=== PATIENT | female | born 1960 | race Caucasian/White ===

== ENCOUNTER → 2020-02-15 13:41 | Outpatient (BNVA) | payer MEDICARE, SELFPAY | PROVIDERS: PCP Internal Medicine; Referring Provider Internal Medicine; Visit Provider Physician Assistant | DX: R19.5 Other fecal abnormalities (principal); I25.2 Old myocardial infarction | CPT/HCPCS: 99202 ==

== ENCOUNTER 2020-06-07 16:18 | Outpatient (REF) | payer MEDICARE, SELFPAY ==
--- NOTE | ~2020-06-07 | MM_ITS ---
EXAMINATION: MM SCREENING DIGITAL BREAST TOMOSYNTHESIS, BILATERAL CLINICAL INFORMATION: Screening. Asymptomatic. The lifetime risk of breast cancer based on the Tyrer-Cuzick Model is 5%. COMPARISON: Mammography: 06/12/2016 TECHNIQUE: Digital breast tomosynthesis is performed in both the craniocaudal and mediolateral oblique views along with computer-aided detection (CAD). Synthesized 2D images are generated from the tomosynthesis. FINDINGS: The breasts are almost entirely fatty (ACR BI-RADS breast composition Category a). There are no significant masses, abnormal calcifications, or other abnormalities. Again, there is a stable nodule anterior 6:00 left breast with associated bulky calcification consistent with degenerating fibroadenoma. MM/MM tomosynthesis screening BI IMPRESSION: No mammographic evidence of malignancy. ASSESSMENT: BI-RADS 2: Benign RECOMMENDATION: Routine annual mammography screening. This patient's information was entered into a reminder system with a target due date for their next mammogram.
== END 2020-06-07 16:19 | disposition home or self-care (01) ==
LOC: HO.MAMMO 16:18
PROVIDERS: PCP Internal Medicine; Visit Provider Internal Medicine
DX: Z12.31 Encounter for screening mammogram for malignant neoplasm of breast (principal)
CPT/HCPCS: 77063; 77067

== ENCOUNTER 2020-07-24 07:20 | Day surgery (SDC) | payer MEDICARE, SELFPAY ==
[2020-07-17 15:35] VITALS: BMI 38.8
--- NOTE | 2020-07-18 12:50 | HO.ANESPROP2 ---
Documented by User: Millicent Tijerina 07/18/20 12:53 HPI - Anesthesia Eval Consult details Narrative: 60yo F for Colonoscopy Routine Cardiology OV 05/2020 - stable without CP or SOB with gym 5 days per week PMFSH Active Problems Active Problems: All Active Problems (Updated 07/17/20 @ 15:26 by Fiordaliza Chang) Positive colorectal cancer screening using Cologuard test (Acute) Past Medical History Medical History CAD (coronary artery disease) Elevated cholesterol GERD (gastroesophageal reflux disease) GI bleed Heart attack HTN (hypertension) Family History Family History Father Lymphoma Surgical History Surgical History History of esophagogastroduodenoscopy (EGD) Hx of appendectomy Hx of exploratory laparotomy Hx of heart artery stent Social History Social History Household Members: Spouse Smoking Status: Former smoker Tobacco Type: Cigarette Smoking Quit Date: 2016 Use of substances other than those prescribed or required for medical reasons: No Advance Directives: No Advance Directives Information Provided: Yes Meds Allergies Allergy/AdvReac Type Severity Reaction Status Date / Time doxycycline Allergy Unknown Unknown Verified 07/17/20 15:25 meperidine [Demerol] Allergy Unknown Unknown Verified 07/17/20 15:25 Home Medications Medication Instructions Recorded Confirmed Last Taken Type atorvastatin 80 mg tablet 80 mg PO DAILY 02/15/20 07/17/20 Unknown History isosorbide dinitrate 30 mg tablet 30 mg PO ONCE tab 02/15/20 07/24/20 07/24/20 07:00 History lisinopril 5 mg tablet 5 mg PO DAILY 02/15/20 07/17/20 Unknown History metoprolol succinate 50 mg 50 mg PO BEDTIME 02/15/20 07/17/20 Unknown History tablet,extended release 24 hr pantoprazole 40 mg tablet,delayed 40 mg PO DAILY 02/15/20 07/17/20 Unknown History release aspirin [Aspirin Low Dose] 81 mg PO DAILY 07/17/20 07/24/20 07/23/20 History nitroglycerin [Nitrostat] 0.4 mg SUBLINGUAL Q5M PRN 07/17/20 07/17/20 Unknown History Exam Exam Date and Time: July 18, 2020 1250 Height,Weight and Vital Signs: Height 5 ft 3 in Weight 99.393 kg Assessment and Plan Assessment Anesthesia Assessment: Chart Reviewed Documented by User: Mirta Contreras 07/24/20 08:28 [facility] Past Medical History Medical History CAD (coronary artery disease) Elevated cholesterol GERD (gastroesophageal reflux disease) GI bleed Heart attack HTN (hypertension) Family History Family History Father Lymphoma Surgical History Surgical History History of esophagogastroduodenoscopy (EGD) Hx of appendectomy Hx of exploratory laparotomy Hx of heart artery stent Social History Social History Household Members: Spouse Smoking Status: Former smoker Tobacco Type: Cigarette Smoking Quit Date: 2016 Use of substances other than those prescribed or required for medical reasons: No Advance Directives: No Advance Directives Information Provided: Yes Meds Allergies Allergy/AdvReac Type Severity Reaction Status Date / Time doxycycline Allergy Unknown Unknown Verified 07/17/20 15:25 meperidine [Demerol] Allergy Unknown Unknown Verified 07/17/20 15:25 Home Medications Medication Instructions Recorded Confirmed Last Taken Type atorvastatin 80 mg tablet 80 mg PO DAILY 02/15/20 07/17/20 Unknown History isosorbide dinitrate 30 mg tablet 30 mg PO ONCE tab 02/15/20 07/24/20 07/24/20 07:00 History lisinopril 5 mg tablet 5 mg PO DAILY 02/15/20 07/17/20 Unknown History metoprolol succinate 50 mg 50 mg PO BEDTIME 02/15/20 07/17/20 Unknown History tablet,extended release 24 hr pantoprazole 40 mg tablet,delayed 40 mg PO DAILY 02/15/20 07/17/20 Unknown History release aspirin [Aspirin Low Dose] 81 mg PO DAILY 07/17/20 07/24/20 07/23/20 History nitroglycerin [Nitrostat] 0.4 mg SUBLINGUAL Q5M PRN 07/17/20 07/17/20 Unknown History Exam Airway Mallampati Class: II TM Dist: >3cm Neck ROM: Full
[2020-07-24 07:53] VITALS: BP 143/85; PULSE 80; RESP 16; TEMP 36.4; O2SAT 98; BMI 35.9
[2020-07-24] MEDS: Lactated Ringers 1,000 ML 100 ML IVCONT (08:02)
--- NOTE | 2020-07-24 08:16 | W.PM.OPN ---
Operative Note Operative Note Date of Service: 07/24/20 Narrative: Pre-op diagnosis: Colon cancer screening, positive Cologuard test Post-op diagnosis: other (Colon polyps, diverticulosis, hemorrhoids) Procedure: COLONOSCOPY TILL CECUM WITH SNARE POLYPECTOMY AND SUBMUCOSAL INJECTION Consent: Indications for the procedure and potential complications of bleeding, perforation, reaction to medications and missed diagnosis were discussed with the patient and informed consent was obtained. Instrument: Olympus PCF H 190 L variable stiffness pediatric colonoscope & Olympus CF H 190 variable stiffness adult colonoscope Monitoring: Vital signs and clinical assessment, intermittent blood pressure monitoring, continuous EKG monitoring, Pulse oximetry and Carbon Dioxide monitoring were done throughout the procedure. Colon withdrawl time was 45 minutes. Procedure: The patient was placed in the left lateral decubitis position and pre-procedure medications were administered. After a digital rectal examination of the ano-rectum, the video colonoscope was inserted into the rectum and advanced through the colon to the cecum. The colonoscope was slowly withdrawn in a retrograde panoramic fashion and the colon mucosa was carefully examined including a retroflexed view of the rectum. Findings and interventions are described below. Procedure Difficulty: Colon was long and tortuous and there was recurrent loop formation. Patient was placed in the supine position and LLQ pressure was applied to intubate the transverse colon Findings: Terminal Ileum: Not evaluated Cecum: Normal Ascending Colon: A 3 x 1 cms elongated polyp in the proximal AC at 100 cms - polyp was raised with 5 cc of Orise solution (submucosal injection) and removed piecemeal with a hot snare. Polypectomy site was marked by Patito ink. Transverse Colon: A 4 x 3 cms flat polyp at 80 cms - polyp was raised with 7 cc of Orise solution (submucosal injection) and removed piecemeal with a hot snare. Polypectomy site was marked by Patito ink. Descending Colon: Moderate diverticulosis Sigmoid Colon: Moderate diverticulosis Rectum: Normal Ano-rectum: Normal. Colon preparation: Fair after copious irrigation and poor in some areas of the colon Impression and Post Procedure Diagnosis: Colonoscopy Findings: Two large polyps removed Moderate diverticulosis seen in the left colon Fair prep. Plan: Await pathology results Letter will be sent to the patient with biopsy results and recommendations for follow-up colonoscopy. Repeat Colonoscopy interval based on path results - in 6 months if polyps are adenomatous to check polypectomy sites in ascending and transverse colon and due to fair prep. Above findings were reviewed with the patient and colon polyps and diverticulosis handouts were given in the discharge area Surgeon: Henrik Kasper MD Anesthesia: MAC (Emmy Littlejohn CRNA) Vinegar Maker: Julienne Manrique Estimated blood loss (mL): 0 Pathology: other (A- ASCENDING COLON POLYP AT 100CMS- ORISE USED B- TRANSVERSE COLON POLYP AT 80CMS- ORISE USED) Condition: stable Disposition: PACU
--- NOTE | 2020-07-24 08:16 | MHC.SHP ---
Pre-Procedural Eval Section A The patient is an INPATIENT: No The History & Physical has been completed within 30 days and I have reviewed it.: No Section B Chief Complaint: fecal abnormalities Details of Present Illness: Colon cancer screening, positive Cologuard test Relevant Family History (Specify if Yes): No Relevant Social History: None Present Medications: see Short Stay Collaborative assessment Medical History: Significant History (CAD) History of Previous Operations: Relevant previous surgery/procedure and date(s) (History of esophagogastroduodenoscopy (EGD) Hx of appendectomy) Allergies: Allergies Allergy/AdvReac Type Severity Reaction Status Date / Time doxycycline Allergy Unknown Unknown Verified 07/17/20 15:25 meperidine [Demerol] Allergy Unknown Unknown Verified 07/17/20 15:25 Review of Systems Sugical H&P ROS: Negative: Constitution, Cardiovascular, Respiratory and Gastrointestinal Exam Surgical H&P Exam: Normal: Heart, Normal: Lungs, Normal: Extremities and Normal: Abdomen Plan Diagnosis/Plan: Unchanged I have reviewed the history and physical and performed a pertinent physical examination on my patient. No changes have occurred unless specified.
[2020-07-24 09:45] VITALS: BP 105/65; PULSE 85; RESP 14; TEMP 36.5; O2SAT 96
[2020-07-24 10:00] VITALS: BP 113/65; PULSE 75; RESP 20; O2SAT 97
== END 2020-07-24 10:34 | disposition home or self-care (01) ==
PROVIDERS: PCP Internal Medicine; Visit Provider Internal Medicine Gastroenterology
PROC: 0DJD8ZZ Inspection of Lower Intestinal Tract, Via Natural or Artificial Opening Endoscopic (ICD-10-PCS; CPT 45378; principal; 2020-07-24 08:20)
DX: R19.5 Other fecal abnormalities (principal); D12.2 Benign neoplasm of ascending colon; K63.5 Polyp of colon; K57.30 Diverticulosis of large intestine without perforation or abscess without bleeding; K21.9 Gastro-esophageal reflux disease without esophagitis; I10 Essential (primary) hypertension; Z87.891 Personal history of nicotine dependence; Z79.82 Long term (current) use of aspirin; Z79.899 Other long term (current) drug therapy
CPT/HCPCS: 45385; 45381; 88305

== ENCOUNTER 2020-12-13 08:21 | Outpatient (REF) | payer MEDICARE, SELFPAY ==
[2020-12-13 11:10] LABS: MANUAL DIFF FLAG NO
[2020-12-13 11:14] LABS: Basophils Percent Auto 0.3 % (0-2); Eosinophils Absolute Auto 0.1 X10*3/uL (0.0-0.4); Hematocrit 41.8 % (37-47); Hemoglobin 13.5 g/dl (12.0-16.0); Imm Gran Abs Auto 0.03 X10*3/uL (0.00-0.03); Imm Gran Pct Auto 0.3 % (0.0-0.4); Lymphocytes Absolute Auto 2.1 X10*3/uL (1.2-4.9); Lymphocytes Percent Auto 24.5 % (20-40); Mean Corpuscular HGB Conc 32.3 g/dl (31.0-35.0); Mean Corpuscular Hemoglobin 27.1 pg (27.0-33.0); Mean Corpuscular Volume 83.8 fL (80-98); Monocytes Absolute Auto 0.7 X10*3/uL (0.1-1.2); Monocytes Percent Auto 7.8 % (2-11); Neutrophils Absolute Auto 5.7 X10*3/uL (2.0-8.3); Neutrophils Percent Auto 66.1 % (45-73); Platelet Count 182 X10*3/uL (160-400); Red Blood Count 4.99 X10*6/uL (4.20-5.50); Red Cell Distribution Width 13.8 % (11.0-16.0); White Blood Count 8.6 X10*3/uL (4.8-10.8)
[2020-12-13 11:31] LABS: Appearance Urine CLOUDY; Color Urine YELLOW; Glucose Urine UA NEG (NEG); Leukocyte Esterase Urine TRACE (NEG); Nitrite Urine NEG (NEG); Specific Gravity - Urine 1.025 (1.005-1.025); Urine Blood NEG (NEG); Urine Ketones NEG (NEG); Urine Protein NEG (NEG-TRACE)
[2020-12-13 11:44] LABS: Alanine Aminotransferase 23 U/L (0-31); Albumin Level 4.2 g/dL (3.5-5.0); Alkaline Phosphatase 93 U/L (39-117); Anion Gap 14 (12-20); Aspartate Amino Transferase 20 U/L (5-31); Bilirubin Total 0.6 mg/dL (0.0-1.0); Blood Urea Nitrogen 12 mg/dL (9-16); Calcium 9.3 mg/dL (8.4-10.2); Carbon Dioxide 24 mmol/L (22-29); Chloride 107 mmol/L (96-108); Cholesterol 173 mg/dL; Estimated Glomerular Filt Rate > 60; Glucose Fasting 105 mg/dL (60-99); HDL Cholesterol 49 mg/dL; LDL Cholesterol Calculated 92 mg/dl; Potassium 4.1 mmol/L (3.3-5.1); Sodium 141 mmol/L (135-145); Triglycerides 162 mg/dL
[2020-12-13 11:59] LABS: Bacteria Urine TRACE /LPF; Mucus Urine 2+ /LPF; RBC Urine 0 /HPF (0); Squamous Epithelial Cell Urine 2+ /LPF
[2020-12-13 12:07] LABS: TSH reflex Free T4 0.99 uIU/mL (0.32-4.0)
== END 2020-12-13 08:22 | disposition home or self-care (01) ==
LOC: HO.HMGCLDS 08:21
PROVIDERS: PCP Internal Medicine; Visit Provider Internal Medicine
DX: Z00.00 Encounter for general adult medical examination without abnormal findings (principal); R93.3 Abnormal findings on diagnostic imaging of other parts of digestive tract; I25.10 Atherosclerotic heart disease of native coronary artery without angina pectoris; E78.00 Pure hypercholesterolemia, unspecified
CPT/HCPCS: 36415; 80053; 80061; 81001; 84443; 85025

== ENCOUNTER 2021-04-09 09:05 | Outpatient (REF) | payer MEDICARE, SELFPAY ==
[2021-04-09 12:03] LABS: Appearance Urine TURBID; Color Urine YELLOW; Glucose Urine UA NEG (NEG); Leukocyte Esterase Urine 1+ (NEG); Nitrite Urine NEG (NEG); Specific Gravity - Urine 1.015 (1.005-1.025); Urine Blood NEG (NEG); Urine Ketones NEG (NEG); Urine Protein NEG (NEG-TRACE)
[2021-04-09 12:14] LABS: RBC Urine 0-2 /HPF (0)
[2021-04-09 12:15] LABS: Amorphous Sediment Urine 3+ /LPF; Bacteria Urine 1+ /LPF; Squamous Epithelial Cell Urine 2+ /LPF
[2021-04-09 12:18] LABS: Alanine Aminotransferase 41 U/L (0-31); Albumin Level 4.2 g/dL (3.5-5.0); Alkaline Phosphatase 94 U/L (39-117); Anion Gap 13 (12-20); Aspartate Amino Transferase 27 U/L (5-31); Bilirubin Total 0.6 mg/dL (0.0-1.0); Blood Urea Nitrogen 15 mg/dL (9-16); Calcium 9.3 mg/dL (8.4-10.2); Carbon Dioxide 28 mmol/L (22-29); Chloride 105 mmol/L (96-108); Cholesterol 165 mg/dL; Estimated Glomerular Filt Rate > 60; Glucose Fasting 118 mg/dL (60-99); HDL Cholesterol 41 mg/dL; LDL Cholesterol Calculated 91 mg/dl; Potassium 3.6 mmol/L (3.3-5.1); Sodium 142 mmol/L (135-145); Total Protein 7.3 g/dL (6.5-8.0); Triglycerides 168 mg/dL
== END 2021-04-09 09:06 | disposition home or self-care (01) ==
LOC: HO.HMGCLDS 09:05
PROVIDERS: PCP Internal Medicine; Visit Provider Internal Medicine
DX: E78.5 Hyperlipidemia, unspecified (principal); I10 Essential (primary) hypertension
CPT/HCPCS: 36415; 80053; 80061; 81001

== ENCOUNTER 2021-05-03 08:54 | Day surgery (SDC) | payer MEDICARE, SELFPAY ==
[2021-04-29 15:36] VITALS: BMI 36.8
--- NOTE | 2021-05-01 13:24 | P.CONAN_ITS ---
Documented by User: Millicent Tijerina NP 05/02/21 10:35 HPI - Anesthesia Eval Consult details Narrative: 61yo F for Colonoscopy s/p colonoscopy 07/2020 with TIVA Cardiac cleared at low risk, no preop testing needed PMFSH Active Problems Active Problems: All Active Problems (Updated 04/29/21 @ 15:32 by Yue Reyes, RN) Positive colorectal cancer screening using Cologuard test (Acute) Annual physical exam (Acute) Hyperglycemia (Acute) Hyperlipidemia (Acute) HTN (hypertension) (Acute) Normal Pap smear (Acute) Overweight (Acute) STEMI (ST elevation myocardial infarction) (Acute) Elevated cholesterol (Acute) CAD (coronary artery disease) (Acute) Abnormal colonoscopy (Acute) Past Medical History Medical History Abnormal colonoscopy CAD (coronary artery disease) Elevated cholesterol GERD (gastroesophageal reflux disease) GI bleed HTN (hypertension) Hyperglycemia Hyperlipidemia Normal Pap smear On beta noemi at home Overweight STEMI (ST elevation myocardial infarction) Family History Family History Father Lymphoma Surgical History Surgical History History of esophagogastroduodenoscopy (EGD) Hx of appendectomy Hx of colonoscopy Hx of exploratory laparotomy Hx of heart artery stent Social History Social History Household Members: Spouse Housing: House Patient Tobacco Use Status: Former Tobacco user Quit Date: 2016 Tobacco use type: Cigarette Years Smoked: 30 Smoked in Last 30 Days: No e-Cigarette/Vaping Use: Never Used Use of substances other than those prescribed or required for medical reasons: No Are you DNR?: No Advance Directives: No Advance Directives Information Provided: Yes Current occupational status: employed Meds Allergies Allergy/AdvReac Type Severity Reaction Status Date / Time doxycycline Allergy Unknown rash Verified 05/03/21 09:06 scratchy throat meperidine [Demerol] Allergy Unknown Unknown Verified 05/03/21 09:06 Home Medications Medication Instructions Recorded Confirmed Last Taken Type atorvastatin 80 80 mg PO DAILY 02/15/20 04/29/21 05/03/21 06:00 History mg tablet isosorbide 30 mg PO ONCE 02/15/20 04/29/2122 06:00 History dinitrate 30 mg tab tablet metoprolol 50 mg PO 02/15/20 04/29/21 05/03/21 06:00 History succinate 50 mg BEDTIME tablet,extended release 24 hr pantoprazole 40 40 mg PO DAILY 02/15/20 04/29/21 05/03/21 06:00 History mg tablet,delayed release aspirin 81 mg 81 mg PO DAILY 07/17/20 04/29/21 05/03/21 06:00 History tablet,delayed release (Aspirin Low Dose) nitroglycerin 0.4 mg 07/17/20 04/29/21 Unknown History 0.4 mg SUBLINGUAL Q5M sublingual PRN tablet (Nitrostat) Exam Exam Date and Time: May 01, 2021 1324 Height,Weight and Vital Signs: Height 5 ft 3 in Weight 94.347 kg Pertinent Lab Results Pertinent Lab Results: Laboratory Tests 12/13/20 04/09/21 08:29 09:12 WBC 8.6 Hgb 13.5 Hct 41.8 Plt Count 182 Sodium 142 Potassium 3.6 Chloride 105 Carbon Dioxide 28 BUN 15 Creatinine 0.88 Assessment and Plan Assessment Anesthesia Assessment: Chart Reviewed Documented by User: Lauren Fielsd MD 05/03/21 10:41 [facility] Past Medical History Medical History Abnormal colonoscopy CAD (coronary artery disease) Elevated cholesterol GERD (gastroesophageal reflux disease) GI bleed HTN (hypertension) Hyperglycemia Hyperlipidemia Normal Pap smear On beta noemi at home Overweight STEMI (ST elevation myocardial infarction) Family History Family History Father Lymphoma Surgical History Surgical History History of esophagogastroduodenoscopy (EGD) Hx of appendectomy Hx of colonoscopy Hx of exploratory laparotomy Hx of heart artery stent Social History Social History Household Members: Spouse Housing: House Patient Tobacco Use Status: Former Tobacco user Quit Date: 2016 Tobacco use type: Cigarette Years Smoked: 30 Smoked in Last 30 Days: No e-Cigarette/Vaping Use: Never Used Use of substances other than those prescribed or required for medical reasons: No Are you DNR?: No Advance Directives: No Advance Directives Information Provided: Yes Current occupational status: employed Meds Allergies Allergy/AdvReac Type Severity Reaction Status Date / Time doxycycline Allergy Unknown rash Verified 05/03/21 09:06 scratchy throat meperidine [Demerol] Allergy Unknown Unknown Verified 05/03/21 09:06 Home Medications Medication Instructions Recorded Confirmed Last Taken Type atorvastatin 80 80 mg PO DAILY 02/15/20 04/29/21 05/03/21 06:00 History mg tablet isosorbide 30 mg PO ONCE 02/15/20 04/29/21 05/03/21 06:00 History dinitrate 30 mg tab tablet metoprolol 50 mg PO 02/15/20 04/29/21 05/03/21 06:00 History succinate 50 mg BEDTIME tablet,extended release 24 hr pantoprazole 40 40 mg PO DAILY 02/15/20 04/29/21 05/03/21 06:00 History mg tablet,delayed release aspirin 81 mg 81 mg PO DAILY 07/17/20 04/29/21 05/03/21 06:00 History tablet,delayed release (Aspirin Low Dose) nitroglycerin 0.4 mg 07/17/20 04/29/21 Unknown History 0.4 mg SUBLINGUAL Q5M sublingual PRN tablet (Nitrostat) Exam Airway Mallampati Class: II TM Dist: >3cm Neck ROM: Full Loose/Missing/Broken Teeth: No Heart: RRR Lungs: CTA Assessment and Plan Assessment Anesthesia Assessment: Anesthesia Plan Discussed Final Anesthetic Review NPO: Yes ASA Class: III Final Preanesthetic Review: Meds/Allgs Chart Reviewed, Consent Obtained/Reviewed and Anes Risks/Benef Reviewed Patient Risk: Intermediate Procedure Risk: Low Anesthetic Plan Anesthetic Plan: MAC: Disposition: Standard PACU
[2021-05-03 09:16] VITALS: BMI 37.9
[2021-05-03 09:22] VITALS: BP 137/91; PULSE 80; RESP 16; TEMP 36.6; O2SAT 96
[2021-05-03] MEDS: Lactated Ringers 1,000 ML 100 ML IVCONT (09:41)
--- NOTE | 2021-05-03 09:43 | MHC.SHP ---
Pre-Procedural Eval Section A Date of Service: 05/03/21 Section B Chief Complaint: screening Details of Present Illness: Colon cancer screening, history of colon polyps Relevant Family History (Specify if Yes): No Relevant Social History: Tobacco Use (former smoker) Present Medications: see Short Stay Collaborative assessment Medical History: Significant History (Abnormal colonoscopy CAD (coronary artery disease) Elevated cholesterol GERD (gastroesophageal reflux disease) GI bleed HTN (hypertension) Hyperglycemia Hyperlipidemia Normal Pap smear On beta noemi at home Overweight STEMI (ST elevation myocardial infarction)) History of Previous Operations: Relevant previous surgery/procedure and date(s) (History of esophagogastroduodenoscopy (EGD) Hx of appendectomy Hx of exploratory laparotomy Hx of heart artery stent) Allergies: Allergies Allergy/AdvReac Type Severity Reaction Status Date / Time doxycycline Allergy Unknown rash Verified 05/03/21 09:06 scratchy throat meperidine [Demerol] Allergy Unknown Unknown Verified 05/03/21 09:06 Review of Systems Sugical H&P ROS: Negative: Constitution, Cardiovascular, Respiratory and Gastrointestinal Exam Surgical H&P Exam: Normal: Heart, Normal: Lungs, Normal: Extremities and Normal: Abdomen Plan Diagnosis/Plan: Unchanged I have reviewed the history and physical and performed a pertinent physical examination on my patient. No changes have occurred unless specified.
--- NOTE | 2021-05-03 09:45 | P.BOP_ITS ---
Brief Operative Note Date of Service: 05/03/21 Pre-op diagnosis: Colon cancer screening, history of colon polyps Post-op diagnosis: other (Colon polyps, diverticulosis, hemorrhoids) Procedure: COLONOSCOPY TILL CECUM WITH BIOPSIES, SNARE POLYPECTOMY, SUBMUCOSAL INJECTION Consent: Indications for the procedure and potential complications of bleeding, perforation, reaction to medications and missed diagnosis were discussed with the patient and informed consent was obtained. Instrument: Olympus PCF H 190 L variable stiffness pediatric colonoscope Monitoring: Vital signs and clinical assessment, intermittent blood pressure monitoring, continuous EKG monitoring, Pulse oximetry and Carbon Dioxide monitoring were done throughout the procedure. Colon withdrawl time was 32 minutes. Procedure: The patient was placed in the left lateral decubitis position and pre-procedure medications were administered. After a digital rectal examination of the ano-rectum, the video colonoscope was inserted into the rectum and advanced through the colon to the cecum. The colonoscope was slowly withdrawn in a retrograde panoramic fashion and the colon mucosa was carefully examined including a retroflexed view of the rectum. Findings and interventions are described below. Procedure Difficulty: Colon was long and tortuous and there was some loop formation. Patient was placed in the supine position with application of left lower quadrant pressure to intubate the cecum. Findings: Terminal Ileum: Not evaluated Cecum: Normal Ascending Colon: Polypectomy site examined in the AC and a 2-3 mm polyp seen and removed with a cold biopsy. Transverse Colon: A 2.5 x 1 cms elongated polyp at 140 cms - raised with 5 CC of normal saline and removed piece meal with a hot snare. Remaining polyp was ablated with cautery using the snare tip and polypectomy site was marked with Patito ink Descending Colon: Moderate diverticulosis Sigmoid Colon: Moderate diverticulosis Rectum: Normal Ano-rectum: Moderate internal hemorrhoids Colon preparation: Good after some irrigation Impression and Post Procedure Diagnosis: Colonoscopy Findings: One small and one medium sized polyps removed Moderate diverticulosis seen in the left colon Moderate hemorrhoids on retroflexed exam. Plan: Await pathology results Patient has an appointment on 05/30/21 in the GI Clinic with MIGUEL Schultz . Repeat Colonoscopy interval based on path results - in 2 years if polyps are adenomatous and 10 years if polyps are hyperplastic. Adult colonoscope for future colonoscopies. Above findings were reviewed with the patient and colon polyps handout was given in the discharge area Surgeon: Henrik Kasper MD Anesthesia: MAC (Dr Fields) Was an Daily Sales Audit Clerk used for this Procedure?: Yes Daily Sales Audit Clerk: Lyn Soto Estimated blood loss (mL): 0 Pathology: other (A. ascending colon polyp B. transverse colon polyp at 140 cm) Condition: stable Disposition: PACU
--- NOTE | 2021-05-03 09:45 | W.PM.OPN ---
Operative Note Operative Note Date of Service: 05/03/21 Narrative: Pre-op diagnosis: Colon cancer screening, history of colon polyps Post-op diagnosis:?other (Colon polyps, diverticulosis, hemorrhoids) Procedure: COLONOSCOPY TILL CECUM WITH BIOPSIES, SNARE POLYPECTOMY, SUBMUCOSAL INJECTION Consent:?Indications for the procedure and potential complications of bleeding, perforation, reaction to medications and missed diagnosis were discussed with the patient and informed consent was obtained. Instrument:?Olympus PCF H 190 L variable stiffness pediatric colonoscope Monitoring:?Vital signs and clinical assessment, intermittent blood pressure monitoring, continuous EKG monitoring, Pulse oximetry and Carbon Dioxide monitoring were done throughout the procedure. Colon withdrawl time was 32 minutes. Procedure:?The patient was placed in the left lateral decubitis position and pre-procedure medications were administered. After a digital rectal examination of the ano-rectum, the video colonoscope was inserted into the rectum and advanced through the colon to the cecum. The colonoscope was slowly withdrawn in a retrograde panoramic fashion and the colon mucosa was carefully examined including a retroflexed view of the rectum. Findings and interventions are described below. Procedure Difficulty:??Colon was long and tortuous and there was some loop formation.? Patient was placed in the supine position with application of left lower quadrant pressure to intubate the cecum. Findings: Terminal Ileum: Not evaluated Cecum:? Normal Ascending Colon:??Polypectomy site examined in the AC and a 2-3 mm polyp seen and removed with a cold biopsy. Transverse Colon:??A 2.5 x 1 cms elongated polyp at 140 cms - raised with 5 CC of normal saline and removed piece meal with a hot snare.? Remaining polyp was ablated with cautery using the snare tip and polypectomy site was marked with Patito ink Descending Colon:? Moderate diverticulosis Sigmoid Colon:??Moderate diverticulosis Rectum:??Normal Ano-rectum:??Moderate internal hemorrhoids Colon preparation:? Good after some irrigation Impression and Post Procedure Diagnosis: Colonoscopy Findings: One small and one medium sized polyps removed Moderate diverticulosis seen in the left colon Moderate hemorrhoids on retroflexed exam. Plan: Await pathology results Patient has an appointment on 05/30/21 in the GI Clinic with MIGUEL Schultz . Repeat Colonoscopy interval based on path results - in 2 years if polyps are adenomatous and 10 years if polyps are hyperplastic. Adult colonoscope for future colonoscopies. Above findings were reviewed with the patient and colon polyps handout was given in the discharge area Surgeon: Henrik Kasper MD Anesthesia:?MAC (Dr Fields) Was an Martial Arts Instructor used for this Procedure?:?Yes Martial Arts Instructor:?Lyn Soto Estimated blood loss (mL):?0 Pathology:?other (A. ascending colon polyp? B. transverse colon polyp at 140 cm) Condition:?stable Disposition:?PACU
[2021-05-03 11:41] VITALS: BP 89/59; PULSE 75; RESP 18; TEMP 37; O2SAT 97
[2021-05-03 11:46] VITALS: BP 103/56; PULSE 61; RESP 16; TEMP 37; O2SAT 98
== END 2021-05-03 12:30 | disposition home or self-care (01) ==
PROVIDERS: PCP Internal Medicine; Visit Provider Internal Medicine Gastroenterology
PROC: 0DJD8ZZ Inspection of Lower Intestinal Tract, Via Natural or Artificial Opening Endoscopic (ICD-10-PCS; CPT 45378; principal; 2021-05-03 10:10)
DX: Z12.11 Encounter for screening for malignant neoplasm of colon (principal); Z86.010 Personal history of colon polyps; R19.5 Other fecal abnormalities; D12.3 Benign neoplasm of transverse colon; K63.5 Polyp of colon; K57.30 Diverticulosis of large intestine without perforation or abscess without bleeding; K64.8 Other hemorrhoids; K21.9 Gastro-esophageal reflux disease without esophagitis; I25.10 Atherosclerotic heart disease of native coronary artery without angina pectoris; Z98.61 Coronary angioplasty status; Z79.82 Long term (current) use of aspirin; I10 Essential (primary) hypertension; I25.2 Old myocardial infarction; Z79.899 Other long term (current) drug therapy; Z88.1 Allergy status to other antibiotic agents; Z88.8 Allergy status to other drugs, medicaments and biological substances; Z87.891 Personal history of nicotine dependence
CPT/HCPCS: 45385; 45380; 45381; 88305

== ENCOUNTER 2021-06-10 16:18 | Outpatient (REF) | payer MEDICARE, SELFPAY ==
--- NOTE | ~2021-06-10 | MM_ITS ---
EXAMINATION: MM SCREENING DIGITAL BREAST TOMOSYNTHESIS, BILATERAL CLINICAL INFORMATION: Screening. Asymptomatic. The lifetime risk of breast cancer based on the Tyrer-Cuzick Model is 5%. COMPARISON: Mammography: 06/07/2020, 06/12/2016 TECHNIQUE: Digital breast tomosynthesis is performed in both the craniocaudal and mediolateral oblique views along with computer-aided detection (CAD). Synthesized 2D images are generated from the tomosynthesis. FINDINGS: The breasts are almost entirely fatty (ACR BI-RADS breast composition Category a). Background stromal and fibroglandular densities are stable. There is no interval mass or architectural abnormality or abnormal calcifications. Degenerating fibroadenoma with bulky peripheral calcifications again noted anterior 6:00 left breast. The axilla and skin contours are unremarkable. No significant changes. MM/MM tomosynthesis screening BI IMPRESSION: No mammographic evidence of malignancy. ASSESSMENT: BI-RADS 2: Benign RECOMMENDATION: Routine annual mammography screening. This patient's information was entered into a reminder system with a target due date for their next mammogram.
== END 2021-06-10 16:19 | disposition home or self-care (01) ==
LOC: HO.MAMMO 16:18
PROVIDERS: PCP Internal Medicine; Visit Provider Internal Medicine
DX: Z12.31 Encounter for screening mammogram for malignant neoplasm of breast (principal)
CPT/HCPCS: 77063; 77067

== ENCOUNTER 2021-06-11 07:17 | Outpatient (REF) | payer MEDICARE, SELFPAY ==
[2021-06-11 11:37] LABS: Appearance Urine HAZY; Color Urine YELLOW; Glucose Urine UA NEG (NEG); Leukocyte Esterase Urine 1+ (NEG); Nitrite Urine NEG (NEG); Specific Gravity - Urine 1.025 (1.005-1.025); Urine Blood NEG (NEG); Urine Ketones NEG (NEG); Urine Protein NEG (NEG-TRACE)
[2021-06-11 11:56] LABS: Alanine Aminotransferase 27 U/L (0-31); Albumin Level 4.3 g/dL (3.5-5.0); Alkaline Phosphatase 85 U/L (39-117); Anion Gap 11 (12-20); Aspartate Amino Transferase 18 U/L (5-31); Bilirubin Total 0.7 mg/dL (0.0-1.0); Blood Urea Nitrogen 14 mg/dL (9-16); Calcium 9.2 mg/dL (8.4-10.2); Carbon Dioxide 27 mmol/L (22-29); Chloride 107 mmol/L (96-108); Cholesterol 163 mg/dL; Estimated Glomerular Filt Rate > 60; Glucose Fasting 119 mg/dL (60-99); HDL Cholesterol 48 mg/dL; LDL Cholesterol Calculated 88 mg/dl; Potassium 3.9 mmol/L (3.3-5.1); Sodium 141 mmol/L (135-145); Total Protein 7.2 g/dL (6.5-8.0); Triglycerides 136 mg/dL
[2021-06-11 12:06] LABS: Bacteria Urine 1+ /LPF
[2021-06-11 12:07] LABS: Mucus Urine 1+ /LPF; RBC Urine 0 /HPF (0); Squamous Epithelial Cell Urine 2+ /LPF
[2021-06-11 12:18] LABS: TSH reflex Free T4 1.07 uIU/mL (0.32-4.0)
[2021-06-11 12:32] LABS: Estimated Average Glucose 114 mg/dL; Hemoglobin A1c % 5.6 %
[2021-06-11 12:36] LABS: Creatinine Urine 203.78 mg/dL; Microalbum/Creatinine Ratio Ur 5.8 ug/mg cr
== END 2021-06-11 07:18 | disposition home or self-care (01) ==
LOC: HO.HMGCLDS 07:17
PROVIDERS: Visit Provider Internal Medicine
DX: E78.5 Hyperlipidemia, unspecified (principal); I10 Essential (primary) hypertension; R73.9 Hyperglycemia, unspecified
CPT/HCPCS: 36415; 80053; 80061; 81001; 82043; 83036; 84443

== ENCOUNTER 2022-06-05 10:32 | Outpatient (REF) | payer MEDICARE, SELFPAY ==
[2022-06-05 11:41] LABS: Hematocrit 42.8 % (37.0-47.0); Hemoglobin 13.7 g/dl (12.0-16.0); Mean Corpuscular Hemoglobin 27.6 pg (27.0-33.0); Mean Corpuscular Volume 86.3 fL (80.0-98.0); Mean Platelet Volume 11.3 fL (9.4-12.3); Platelet Count 193 X10*3/uL (160-400); Red Blood Count 4.96 X10*6/uL (4.20-5.50); Red Cell Distribution Width 13.3 % (11.0-16.0); White Blood Count 8.9 X10*3/uL (4.8-10.8)
[2022-06-05 12:06] LABS: Estimated Average Glucose 117 mg/dL; Hemoglobin A1c % 5.7 %
[2022-06-05 12:26] LABS: Alanine Aminotransferase 31 U/L (0-31); Albumin Level 4.4 g/dL (3.5-5.0); Alkaline Phosphatase 94 U/L (39-117); Anion Gap 12 (12-20); Aspartate Amino Transferase 23 U/L (5-31); Bilirubin Total 0.9 mg/dL (0.0-1.0); Blood Urea Nitrogen 15 mg/dL (9-16); Calcium 8.9 mg/dL (8.4-10.2); Carbon Dioxide 26 mmol/L (22-29); Chloride 107 mmol/L (96-108); Cholesterol 157 mg/dL; Estimated Glomerular Filt Rate > 60; Glucose Fasting 99 mg/dL (60-99); HDL Cholesterol 45 mg/dL; LDL Cholesterol Calculated 93 mg/dl; Potassium 4.1 mmol/L (3.3-5.1); Sodium 141 mmol/L (135-145); TSH reflex Free T4 0.76 uIU/mL (0.32-4.0); Triglycerides 98 mg/dL
== END 2022-06-05 10:33 | disposition home or self-care (01) ==
LOC: HO.HMGCLDS 10:32
PROVIDERS: PCP Internal Medicine; Visit Provider Internal Medicine
DX: E78.5 Hyperlipidemia, unspecified (principal); R73.9 Hyperglycemia, unspecified; I10 Essential (primary) hypertension
CPT/HCPCS: 36415; 80053; 80061; 83036; 84443; 85027

== ENCOUNTER 2022-11-28 15:44 | Outpatient (REF) | payer MEDICARE, SELFPAY ==
--- NOTE | ~2022-11-28 | MM_ITS ---
EXAMINATION: MM SCREENING DIGITAL BREAST TOMOSYNTHESIS, BILATERAL CLINICAL INFORMATION: Screening. Asymptomatic. COMPARISON: Mammography: This study is compared with prior exams dating back to 2017. TECHNIQUE: Digital breast tomosynthesis is performed in both the craniocaudal and mediolateral oblique views along with computer-aided detection (CAD). Synthesized 2D images are generated from the tomosynthesis. FINDINGS: There are scattered areas of fibroglandular density (ACR BI-RADS breast composition Category b). There are no significant masses, abnormal calcifications, or other abnormalities. There is an oval, benign mass in the lower portion of the left breast which contains coarse calcifications. There are also adjacent coarse calcifications. These are involuting fibroadenomata which are benign. MM/MM tomosynthesis screening BI IMPRESSION: No mammographic evidence of malignancy. ASSESSMENT: BI-RADS BI-RADS 2 - Benign Findings RECOMMENDATION: Routine annual mammography screening. 1 year F/U This examination should not preclude the clinical evaluation of a suspicious palpable abnormality. This patient's information was entered into a reminder system with a target due date for their next mammogram.
== END 2022-11-28 15:45 | disposition home or self-care (01) ==
LOC: HO.MAMMO 15:44
PROVIDERS: PCP Internal Medicine; Visit Provider Internal Medicine
DX: Z12.31 Encounter for screening mammogram for malignant neoplasm of breast (principal)
CPT/HCPCS: 77063; 77067

== ENCOUNTER → 2022-11-28 16:00 | Outpatient (BNV) | payer MEDICARE, SELFPAY | PROVIDERS: PCP Internal Medicine; Visit Provider Radiology Diagnostic Radiology | DX: Z12.31 Encounter for screening mammogram for malignant neoplasm of breast (principal) | CPT/HCPCS: 77063; 77067 ==

== ENCOUNTER 2023-04-29 11:04 | Outpatient (REF) | payer MEDICARE, SELFPAY ==
[2023-04-29 14:06] LABS: Estimated Average Glucose 97 mg/dL
[2023-04-29 14:13] LABS: Glucose Fasting 96 mg/dL (60-99)
== END 2023-04-29 11:05 | disposition home or self-care (01) ==
LOC: HO.HMGCLDS 11:04
PROVIDERS: PCP Internal Medicine; Visit Provider Nurse Practitioner
DX: I25.10 Atherosclerotic heart disease of native coronary artery without angina pectoris (principal); E66.9 Obesity, unspecified
CPT/HCPCS: 36415; 82947; 83036

== ENCOUNTER 2024-01-13 08:29 | Outpatient (AMB) | payer MEDICARE, SELFPAY ==
--- NOTE | 2024-01-13 08:34 | A.OFFPC_ITS ---
Vital Signs 01/13/24 08:35 Height 5 ft 3 in Weight 165 lb BMI 29.2 BP 124/76 Blood Pressure Location Lt brachial Position Sitting Pulse 67 Pulse Source Pulse Oximeter Pulse Oximetry (%) 96 Oxygen Delivery Method Room Air Intake Visit Reasons: annual visit Intake Note: Pt is here today for PE. Allergies doxycycline Allergy (Unknown, Verified 01/13/24 08:36) rash scratchy throat meperidine [Demerol] Allergy (Unknown, Verified 01/13/24 08:36) Rash Medication List - Last Reconciled 01/13/24 by Evita Norris MD aspirin (Florentino Low Dose Aspirin) 81 mg PO DAILY atorvastatin 80 mg PO DAILY bisacodyl (Dulcolax (bisacodyl)) 20 mg (4 x 5 mg) PO ONCE 1 day metoprolol succinate ER 50 mg PO BEDTIME nitroglycerin (Nitrostat) 0.4 mg sublingual Q5M PRN olmesartan 20 mg PO DAILY pantoprazole 40 mg PO DAILY polyethylene glycol 3350 (Miralax) 238 grams PO ONCE 1 day Tobacco use date assessed: 01/13/24 Dental Screening Dental Screen Date: 01/13/24 Did you have a dental visit in the last 12 months?: Yes Did you have a dental problem in the last 6 months where you did not have access to dental care?: No Was dental information given to patient?: Patient has dentist HPI annual visit HPI Details Patient presents for physical. 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 Patient has been tolerating medication well. She is physically active walking 3-4 miles every day. [facility] Medical History (Updated 01/13/24 @ 08:54 by Evita Norris MD) Hyperlipidemia Normal Pap smear Overweight STEMI (ST elevation myocardial infarction) Abnormal colonoscopy CAD (coronary artery disease) GI bleed HTN (hypertension) GERD (gastroesophageal reflux disease) Surgical History Hx of colonoscopy Hx of heart artery stent Hx of exploratory laparotomy Hx of appendectomy History of esophagogastroduodenoscopy (EGD) Family History Father Lymphoma Social History Household Members: Spouse Housing: House Patient Tobacco Use Status: Former Tobacco user Tobacco use type: Cigarette Years Smoked: 30 e-Cigarette/Vaping Use: Never Used service: No Current occupational status: employed Cognitive needs: No Hearing needs: No Vision needs: Yes Questionnaire PHQ-9 Over the last 2 weeks, how often have you been bothered by any of the following problems? 1. Little interest or pleasure in doing things: not at all 2. Feeling down, depressed, or hopeless: several days 3. Trouble falling or staying asleep, or sleeping too much: several days 4. Feeling tired or having little energy: not at all 5. Poor appetite or overeating: not at all 6. Feeling bad about yourself - or that you are a failure or have let yourself or your family down: not at all 7. Trouble concentrating on things, such as reading the newspaper or watching television: several days 8. Moving or speaking so slowly that other people could have noticed. Or the opposite - being so fidgety or restless that you have been moving around a lot more than usual: not at all 9. Thoughts that you would be better off or of hurting yourself in some way: not at all Total score: 3 Depression Screening Interpretation: Negative Depression Screening Done: Yes 14684 - PHQ-9 Billing: Yes Source: Developed by Drs. Timothy Thompson, Concepcion Puentes, Car Helton and colleagues, with an educational manjeet from [employer]. Thrive Questionnaire Date Thrive assessed: 12/09/23 I am a: Patient What is your living situation today?: I have a steady place to live Within the past 12 months, did the food you bought not last and you didn't have the money to get more?: Never true Within the past 12 months, did you worry whether your food would run out before you got money to buy more?: Never true Do you have trouble paying for medicines?: No Do you have trouble getting transportation to medical appointments?: No Do you have trouble paying your heating and electricity bill?: No Do you have trouble taking care of your child, family member or friend?: No Do you have trouble with day-to-day activities such as bathing, preparing meals, shopping, managing finances, etc.?: No Are you currently unemployed and looking for a job?: No Are you interested in more education?: No Please select the resources that you would like help with: None Currently or been in a relationship where the following occur: No concerns reported THRIVE Score: 0 AUDIT C Alcohol Use Questionnaire (AUDIT-C) 1. How often do you have a drink containing alcohol?: Never 3. How often do you have six or more drinks on one occasion?: Never Total Score: 0 AIME-7 AMB Questionnaire AIME-7 Date AIME - 7 assessed: 01/13/24 Source: Developed by Drs. Timothy Thompson, Concepcion Puentes, Car Helton and colleagues, with an educational manjeet from [employer]. Review of Systems Const All systems reviewed & are unremarkable except as noted in HPI and below Eyes Reports no additional complaints ENT Reports no additional complaints Card Reports no additional complaints Resp Reports no additional complaints GI Reports no additional complaints Reports no additional complaints Physical exam (Primary Care) Vital Signs: Last Vital Signs Pulse 67 01/13/24 08:35 BP 124/76 01/13/24 08:35 Pulse Ox 96 01/13/24 08:35 Oxygen Delivery Method Room Air 01/13/24 08:35 BMI result Body Mass Index 29.2 Tobacco/Smoking Status: Tobacco use Status Tobacco use date assessed 01/13/24 01/13/24 08:40 Patient Tobacco Use Status Former Tobacco user 01/13/24 08:40 Tobacco use type Cigarette 01/13/24 08:40 e-Cigarette/Vaping Use Never Used 01/13/24 08:40 PHQ-9: PHQ-9 Score PHQ-9: Total score 3 01/13/24 08:40 Depression Screening Interpretation: Negative Thrive Assessment: Date of Thrive Assessment Date Thrive assessed 12/09/23 01/13/24 08:40 Currently or been in a relationship where the following occur: No concerns reported Const General: no acute distress HENMT Head: Yes normal to inspection Ears: hearing grossly normal bilaterally General nose exam: Normal external nose present Throat: Yes posterior oropharynx normal Eyes General: appearance normal, both eyes and all related structures Neck Neck: Yes no lymphadenopathy and Yes supple Resp Effort & Inspection: normal respiratory effort Auscultation: clear to auscultation bilaterally Cardio Rhythm: regular rhythm Heart sounds: S1 normal heart sound present and S2 normal heart sound present GI Inspection: Yes normal to inspection Palpation (GI): Soft to palpation Percussion: Yes normal to percussion Auscultation: normal bowel sounds Coding Level of Care Code Est Pt Prev Care 40-64y(29274) Diagnoses Annual physical exam Z00.00 Hyperlipidemia E78.5 HTN (hypertension) I10 STEMI (ST elevation myocardial infarction) I21.3 Assessment & Plan Assessment & Plan (1) Annual physical exam: Code(s): Z00.00 - Encounter for general adult medical examination without abnormal findings Category: Medical Plan: Well-balanced diet regular physical activity discussed with the patient. She is up-to-date with mammogram. She will call GI to schedule colonoscopy (2) Hyperlipidemia: Code(s): E78.5 - Hyperlipidemia, unspecified Category: Medical Plan: Continue statin (3) HTN (hypertension): Code(s): I10 - Essential (primary) hypertension Category: Medical Plan: Continue current medications (4) STEMI (ST elevation myocardial infarction): Comment: 04/2016 S/P RCA bare metal stent, f/u [facility] Code(s): I21.3 - ST elevation (STEMI) myocardial infarction of unspecified site Category: Medical Plan: Continue current medications follow-up with the Cardiology Orders: Orders Complete Blood Count Auto Diff Today E78.00 - Pure hypercholesterolemia, unspecified, E78.5 - Hyperlipidemia, unspecified, I10 - Essential (primary) hypertension, I21.3 - ST elevation (STEMI) myocardial infarction of unspecified site, Z00.00 - Encounter for general adult medical examination without abnormal findings Lipid Panel Today E78.00 - Pure hypercholesterolemia, unspecified, E78.5 - Hyperlipidemia, unspecified, I10 - Essential (primary) hypertension, I21.3 - ST elevation (STEMI) myocardial infarction of unspecified site, Z00.00 - Encounter for general adult medical examination without abnormal findings TSH reflex Free T4 Today E78.00 - Pure hypercholesterolemia, unspecified, E78.5 - Hyperlipidemia, unspecified, I10 - Essential (primary) hypertension, I21.3 - ST elevation (STEMI) myocardial infarction of unspecified site, Z00.00 - Encounter for general adult medical examination without abnormal findings Vitamin D 25-OH Total Today E78.00 - Pure hypercholesterolemia, unspecified, E78.5 - Hyperlipidemia, unspecified, I10 - Essential (primary) hypertension, I21.3 - ST elevation (STEMI) myocardial infarction of unspecified site, Z00.00 - Encounter for general adult medical examination without abnormal findings Comprehensive [place]. Panel Fast Today E78.00 - Pure hypercholesterolemia, unspecified, E78.5 - Hyperlipidemia, unspecified, I10 - Essential (primary) hypertension, I21.3 - ST elevation (STEMI) myocardial infarction of unspecified site, Z00.00 - Encounter for general adult medical examination without abnormal findings Medications: New Ozempic (semaglutide) 2 mg (0.75 mL) subcut QWEEK 3 mL 0RF NS Changed From olmesartan 40 mg PO DAILY 90 tabs 3RF To olmesartan 20 mg PO DAILY
[2024-01-13 08:35] VITALS: BP 124/76; PULSE 67; O2SAT 96; BMI 29.2
== END 2024-01-13 09:03 | disposition home or self-care (01) ==
PROVIDERS: PCP Internal Medicine; Visit Provider Internal Medicine
DX: Z00.00 Encounter for general adult medical examination without abnormal findings (principal); E78.5 Hyperlipidemia, unspecified; I10 Essential (primary) hypertension; I21.3 ST elevation (STEMI) myocardial infarction of unspecified site

== ENCOUNTER → 2024-01-13 08:29 | Outpatient (BNVA) | payer MEDICARE, SELFPAY | PROVIDERS: PCP Internal Medicine; Visit Provider Internal Medicine | DX: Z00.01 Encounter for general adult medical examination with abnormal findings (principal); E78.5 Hyperlipidemia, unspecified; I10 Essential (primary) hypertension; I21.3 ST elevation (STEMI) myocardial infarction of unspecified site; Z79.85 Long-term (current) use of injectable non-insulin antidiabetic drugs | CPT/HCPCS: 96127; 99396 ==

== ENCOUNTER 2024-01-13 09:05 | Outpatient (REF) | payer MEDICARE, SELFPAY ==
[2024-01-13 09:56] LABS: MANUAL DIFF FLAG NO
[2024-01-13 10:10] LABS: Basophils Absolute Auto 0.1 X10*3/uL (0.0-0.2); Basophils Percent Auto 0.5 % (0-2); Eosinophils Percent Auto 0.4 % (0-4); Hemoglobin 13.8 g/dl (12.0-16.0); Imm Gran Abs Auto 0.02 X10*3/uL (0.00-0.03); Imm Gran Pct Auto 0.2 % (0.0-0.4); Lymphocytes Absolute Auto 1.9 X10*3/uL (1.2-4.9); Lymphocytes Percent Auto 19.4 % (20-40); Mean Corpuscular HGB Conc 32.9 g/dl (31.0-35.0); Mean Corpuscular Volume 85.4 fL (80.0-98.0); Mean Platelet Volume 10.8 fL (9.4-12.3); Monocytes Absolute Auto 0.7 X10*3/uL (0.1-1.2); Monocytes Percent Auto 6.8 % (2-11); Neutrophils Percent Auto 72.7 % (45-73); Platelet Count 222 X10*3/uL (160-400); Red Blood Count 4.92 X10*6/uL (4.20-5.50); Red Cell Distribution Width 12.8 % (11.0-16.0); White Blood Count 9.6 X10*3/uL (4.8-10.8)
[2024-01-13 10:28] LABS: Alanine Aminotransferase 25 U/L (0-31); Albumin Level 4.2 g/dL (3.5-5.0); Alkaline Phosphatase 82 U/L (39-117); Anion Gap 11 (12-20); Aspartate Amino Transferase 21 U/L (5-31); Bilirubin Total 0.8 mg/dL (0.0-1.0); Blood Urea Nitrogen 12 mg/dL (9-16); Carbon Dioxide 26 mmol/L (22-29); Chloride 108 mmol/L (96-108); Cholesterol 139 mg/dL (<200); Estimated Glomerular Filt Rate > 60; Glucose Fasting 85 mg/dL (60-99); HDL Cholesterol 44 mg/dL (>40); LDL Cholesterol Calculated 72 mg/dL (<100); Potassium 3.5 mmol/L (3.3-5.1); Sodium 141 mmol/L (135-145); Total Protein 6.9 g/dL (6.5-8.0); Triglycerides 119 mg/dL (<150)
[2024-01-13 10:46] LABS: TSH reflex Free T4 0.63 uIU/mL (0.32-4.0); Vitamin D 25-OH Total 40.7 ng/mL (>30)
== END 2024-01-13 09:06 | disposition home or self-care (01) ==
LOC: HO.HMGCLDS 09:05
PROVIDERS: PCP Internal Medicine; Visit Provider Internal Medicine
DX: Z00.00 Encounter for general adult medical examination without abnormal findings (principal); E78.00 Pure hypercholesterolemia, unspecified; E78.5 Hyperlipidemia, unspecified; I10 Essential (primary) hypertension; I21.3 ST elevation (STEMI) myocardial infarction of unspecified site
CPT/HCPCS: 36415; 80053; 80061; 82306; 84443; 85025

== ENCOUNTER 2024-01-19 15:56 | Outpatient (REF) | payer MEDICARE, SELFPAY ==
--- NOTE | ~2024-01-19 | MM_ITS ---
EXAMINATION: MM SCREENING DIGITAL BREAST TOMOSYNTHESIS, BILATERAL CLINICAL INFORMATION: Screening. Asymptomatic. COMPARISON: Mammography: Comparison is made with available priors TECHNIQUE: Digital breast mammography with tomosynthesis is performed in both the craniocaudal and mediolateral oblique views along with computer-aided detection (CAD). FINDINGS: There are scattered areas of fibroglandular density (ACR BI-RADS breast composition Category b). There are no significant masses, abnormal calcifications, or other abnormalities. MM/MM tomosynthesis screening BI IMPRESSION: No mammographic evidence of malignancy. ASSESSMENT: BI-RADS BI-RADS 1 - Negative RECOMMENDATION: Routine annual mammography screening. 1 year F/U This examination should not preclude the clinical evaluation of a suspicious palpable abnormality. This patient's information was entered into a reminder system with a target due date for their next mammogram. Electronically signed by: Carmella Luna DO 02/01/2024 05:22 PM EDT
== END 2024-01-19 15:57 | disposition home or self-care (01) ==
LOC: HO.MAMMO 15:56
PROVIDERS: PCP Internal Medicine; Visit Provider Internal Medicine
DX: Z12.31 Encounter for screening mammogram for malignant neoplasm of breast (principal)
CPT/HCPCS: 77063; 77067

== ENCOUNTER → 2024-01-19 16:00 | Outpatient (BNV) | payer MEDICARE, SELFPAY | PROVIDERS: PCP Internal Medicine; Visit Provider Internal Medicine | DX: Z12.31 Encounter for screening mammogram for malignant neoplasm of breast (principal) | CPT/HCPCS: 77063; 77067 ==

== ENCOUNTER 2024-11-29 12:27 | Outpatient (AMB) | payer MEDICARE, SELFPAY ==
[2024-11-29 13:15] VITALS: BP 120/80; PULSE 72; TEMP 36.9; O2SAT 98; BMI 28.3
--- NOTE | 2024-11-29 13:15 | AM.OFFWIN_ITS ---
Intake Vital Signs 11/29/24 13:15 Height 5 ft 3 in Weight 160 lb BMI 28.3 BP 120/80 Blood Pressure Location Lt brachial Position Sitting Pulse 72 Pulse Source Pulse Oximeter Temp 98.5 F Temp Source Oral Pulse Oximetry (%) 98 Oxygen Delivery Method Room Air Intake Visit Reasons: EP-Rt toe swollen Intake Note: pt presents with right 2nd toe pain, redness, itchiness and swelling- denies injury Patient Tobacco Use Status: Former Tobacco user Allergies doxycycline Allergy (Unknown, Verified 11/29/24 13:19) rash scratchy throat meperidine (Demerol) Allergy (Unknown, Verified 11/29/24 13:19) Rash Do you need a note to return to daycare/school/sports/work: No HPI HPI Comments History of Present Illness Details History of Present Illness - The patient is a 64-year-old female pr esenting with swelling and erythema of the right foot. - The issue began after an insect bite, which led to significant swelling and erythema to the right 4th toe. - The patient reported intense itching a nd noted that the swelling increased over time. - There is no associated pain and no fev er has been reported. - The patient has a known allergy to dox ycycline. - She noticed that there was increased r edness and streaking up the foot. - She has been able to walk on the foot. - She denies fever, chills, joint pain, numbness, tingling, CP, or SOB. Physical Exam General: Cooperative, healthy appearing, comfortable, no acute distress and well developed Orientation: Patient oriented x3 Respiratory: Normal respiratory effort and able to speak in complete sentences. Clear to auscultation bilaterally Cardiovascular: Regular rate and rhythm. Normal S1 and S2, pulses are 2+ on the LE. Skin: Erythema noted to the dorsal aspect of the right foot and 4th toe. No lesions noted. Neuro: Sensation is intact. Extremities: Swollen and red on the right foot, normal to inspection. No deformity noted. FROM of the right ankle and digits. No TTP of the DIP, PIP, or MTP joints on the right foot. No TTP of the metatarsals on the right. Strength is 5/5 on the LE. Ambulates with steady gait. Patient was informed and verbally consented to the use of an ambient scribe for clinic note documentation during this visit. [facility] Medical History (Updated 01/13/24 @ 08:54 by Evita Norris MD) Hyperlipidemia Normal Pap smear Overweight STEMI (ST elevation myocardial infarction) Abnormal colonoscopy CAD (coronary artery disease) GI bleed HTN (hypertension) GERD (gastroesophageal reflux disease) Surgical History Hx of colonoscopy Hx of heart artery stent Hx of exploratory laparotomy Hx of appendectomy History of esophagogastroduodenoscopy (EGD) Family History Father Lymphoma Social History Household Members: Spouse Housing: House Patient Tobacco Use Status: Former Tobacco user Tobacco use type: Cigarette Years Smoked: 30 e-Cigarette/Vaping Use: Never Used service: No Current occupational status: employed Cognitive needs: No Hearing needs: No Vision needs: Yes Review of Systems Const All systems reviewed & are unremarkable except as noted in HPI and below Physical Exam Vital Signs: Last Vital Signs Temp 98.5 F 11/29/24 13:15 Pulse 72 11/29/24 13:15 BP 120/80 11/29/24 13:15 Pulse Ox 98 11/29/24 13:15 Oxygen Delivery Method Room Air 11/29/24 13:15 BMI result Body Mass Index 28.3 Assessment & Plan Assessment & Plan (1) Cellulitis of toe of right foot: Code(s): L03.031 - Cellulitis of right toe Plan Most likely cellulitis after a bug bite Plan - Prescribe antibiotics for seven days to treat cellulitis. - Tylenol or motrin as needed for pain or fever - Advise patient to monitor for worsening symptoms and contact healthcare provider if condition does not improve. Medications: New cephalexin 500 mg PO Q6H 28 caps 0RF Coding Level of Care Code Est Pt Level 3 (60918) Diagnoses Cellulitis of toe of right foot L03.031
== END 2024-11-29 14:26 | disposition home or self-care (01) ==
PROVIDERS: PCP Internal Medicine; Visit Provider Physician Assistant Medical
DX: L03.031 Cellulitis of right toe (principal)

== ENCOUNTER → 2024-11-29 12:27 | Outpatient (BNVA) | payer MEDICARE, SELFPAY | PROVIDERS: PCP Internal Medicine; Visit Provider Physician Assistant Medical | DX: L03.031 Cellulitis of right toe (principal) | CPT/HCPCS: 99212 ==

== ENCOUNTER 2025-01-23 15:53 | Outpatient (REF) | payer MEDICARE, SELFPAY ==
--- NOTE | ~2025-01-23 | MM_ITS ---
EXAMINATION: MM SCREENING DIGITAL BREAST TOMOSYNTHESIS, BILATERAL CLINICAL INFORMATION: Screening. Asymptomatic. COMPARISON: Mammography: Comparison is made with available priors TECHNIQUE: Digital breast mammography with tomosynthesis is performed in both the craniocaudal and mediolateral oblique views along with computer-aided detection (CAD). FINDINGS: There are scattered areas of fibroglandular density. There are no significant masses, abnormal calcifications, or other abnormalities. MM/MM tomosynthesis screening BI IMPRESSION: No mammographic evidence of malignancy. ASSESSMENT: BI-RADS Category 1: Negative RECOMMENDATION: Routine annual mammography screening. 1 year F/U This examination should not preclude the clinical evaluation of a suspicious palpable abnormality. This patient's information was entered into a reminder system with a target due date for their next mammogram. Electronically signed by: Carmella Luna DO 01/24/2025 12:57 PM EDT
== END 2025-01-23 15:54 | disposition home or self-care (01) ==
LOC: HO.MAMMO 15:53
PROVIDERS: PCP Internal Medicine; Visit Provider Internal Medicine
DX: Z12.31 Encounter for screening mammogram for malignant neoplasm of breast (principal)
CPT/HCPCS: 77063; 77067

== ENCOUNTER → 2025-01-23 16:00 | Outpatient (BNV) | payer MEDICARE, SELFPAY | PROVIDERS: PCP Internal Medicine; Visit Provider Internal Medicine | DX: Z12.31 Encounter for screening mammogram for malignant neoplasm of breast (principal) | CPT/HCPCS: 77063; 77067 ==

== ENCOUNTER 2025-03-14 09:01 | Outpatient (REF) | payer MEDICARE, SELFPAY | END 2025-03-14 09:02 | disposition home or self-care (01) | LOC: HO.LNP 09:01 | PROVIDERS: PCP Internal Medicine; Visit Provider Internal Medicine | DX: Z00.00 Encounter for general adult medical examination without abnormal findings (principal); I10 Essential (primary) hypertension; I25.10 Atherosclerotic heart disease of native coronary artery without angina pectoris; R93.3 Abnormal findings on diagnostic imaging of other parts of digestive tract; Z13.31 Encounter for screening for depression; Z13.39 Encounter for screening examination for other mental health and behavioral disorders | CPT/HCPCS: 87626; 88175; 96127; 99396 ==

== ENCOUNTER 2025-03-14 09:01 | Outpatient (AMB) | payer MEDICARE, SELFPAY ==
[2025-03-14 09:07] VITALS: BP 118/70; PULSE 69; RESP 17; TEMP 36.6; O2SAT 95; BMI 28.0
--- NOTE | 2025-03-14 09:07 | MHC.PC.OV ---
Vital Signs 03/14/25 09:07 Height 5 ft 3 in Weight 158 lb BMI 28.0 BP 118/70 Blood Pressure Location Lt brachial Position Sitting Respiration 17 Pulse 69 Pulse Source Pulse Oximeter Temp 97.9 F Temp Source Oral Pulse Oximetry (%) 95 Oxygen Delivery Method Room Air Intake Visit Reasons: Annual PE Intake Note: Pt is here today for PE. Allergies doxycycline Allergy (Unknown, Verified 03/14/25 09:12) rash scratchy throat meperidine (Demerol) Allergy (Unknown, Verified 03/14/25 09:12) Rash Medication List - Last Reconciled 03/14/25 by Evita Norris MD aspirin (Florentino Low Dose Aspirin) 81 mg PO DAILY atorvastatin 80 mg PO DAILY metoprolol succinate ER 50 mg PO BEDTIME multivitamin (Daily Multi-Vitamin tablet) 1 tab PO DAILY nitroglycerin (Nitrostat) 0.4 mg sublingual Q5M PRN olmesartan 20 mg PO DAILY Ozempic (semaglutide) 2 mg (0.75 mL) subcut QWEEK NS pantoprazole 40 mg PO DAILY polyethylene glycol 3350 (Miralax) 238 grams PO ONCE PRN Tobacco use date assessed: 03/14/25 Dental Screening Dental Screen Date: 03/14/25 Did you have a dental visit in the last 12 months?: Yes Did you have a dental problem in the last 6 months where you did not have access to dental care?: No Was dental information given to patient?: Patient has dentist HPI Annual PE HPI Details Pt presents for PE. PFSH Medical History Hyperlipidemia Normal Pap smear Overweight STEMI (ST elevation myocardial infarction) Abnormal colonoscopy CAD (coronary artery disease) GI bleed HTN (hypertension) GERD (gastroesophageal reflux disease) Surgical History Hx of colonoscopy Hx of heart artery stent Hx of exploratory laparotomy Hx of appendectomy History of esophagogastroduodenoscopy (EGD) Family History Father Lymphoma Social History (Updated 03/14/25 @ 09:56 by Evita Norris MD) Household Members: Spouse Household Members Other:: since 2022, 2 kids (in [place] & [place]), no grandkids Housing: House Patient Tobacco Use Status: Former Tobacco user Tobacco use type: Cigarette Years Smoked: 30 e-Cigarette/Vaping Use: Never Used service: No Current occupational status: employed Cognitive needs: No Hearing needs: No Vision needs: Yes Questionnaire PHQ-9 Over the last 2 weeks, how often have you been bothered by any of the following problems? 1. Little interest or pleasure in doing things: not at all 2. Feeling down, depressed, or hopeless: not at all 3. Trouble falling or staying asleep, or sleeping too much: not at all 4. Feeling tired or having little energy: not at all 5. Poor appetite or overeating: not at all 6. Feeling bad about yourself - or that you are a failure or have let yourself or your family down: not at all 7. Trouble concentrating on things, such as reading the newspaper or watching television: not at all 8. Moving or speaking so slowly that other people could have noticed. Or the opposite - being so fidgety or restless that you have been moving around a lot more than usual: not at all 9. Thoughts that you would be better off or of hurting yourself in some way: not at all Total score: 0 Depression Screening Interpretation: Negative Depression Screening Done: Yes 42798 - PHQ-9 Billing: Yes Source: Developed by Drs. Timothy Thompson, Concepcion Puentes, Car Helton and colleagues, with an educational manjeet from [employer]. Thrive Questionnaire Date Thrive assessed: 03/14/25 I am a: Patient What is your living situation today?: I have a steady place to live Within the past 12 months, did the food you bought not last and you didn't have the money to get more?: Never true Within the past 12 months, did you worry whether your food would run out before you got money to buy more?: Never true Do you have trouble paying for medicines?: No Do you have trouble getting transportation to medical appointments?: No Do you have trouble paying your heating and electricity bill?: No Do you have trouble taking care of your child, family member or friend?: No Do you have trouble with day-to-day activities such as bathing, preparing meals, shopping, managing finances, etc.?: No Are you currently unemployed and looking for a job?: No Are you interested in more education?: No Please select the resources that you would like help with: None Currently or been in a relationship where the following occur: No concerns reported THRIVE Score: 0 AUDIT C Alcohol Use Questionnaire (AUDIT-C) 1. How often do you have a drink containing alcohol?: Monthly or less 2. How many drinks containing alcohol do you have on a typical day when you are drinking?: 1 or 2 3. How often do you have six or more drinks on one occasion?: Never Total Score: 1 AIME-7 AMB Questionnaire AIME-7 Date AIME - 7 assessed: 03/14/25 Feeling nervous, anxious, or on edge: 0 = Not at all Not being able to stop or control worryin = Not at all Worrying too much about different things: 0 = Not at all Trouble relaxin = Not at all Being so restless that it is hard to sit still: 0 = Not at all Becoming easily annoyed or irritable: 0 = Not at all Feeling afraid as if something awful might happen: 0 = Not at all Total AIME-7 score (0-4 normal; 5-9 mild; 10-14 moderate; 15-21 severe): 0 Source: Developed by Drs. Timothy Thompson, Concepcion Puentes, Car Helton and colleagues, with an educational manjeet from [employer]. AIME-7 Assessment Billing AIME-7 Assessment Tool: AIME-7 Assessment 36496 Review of Systems Const All systems reviewed & are unremarkable except as noted in HPI and below Eyes Reports no additional complaints ENT Reports no additional complaints Card Reports no additional complaints Resp Reports no additional complaints GI Reports no additional complaints Reports no additional complaints Musc Reports no additional complaints Physical exam (Primary Care) Vital Signs: Last Vital Signs Temp 97.9 F 03/14/25 09:07 Pulse 69 03/14/25 09:07 Resp 17 03/14/25 09:07 BP 118/70 03/14/25 09:07 Pulse Ox 95 03/14/25 09:07 Oxygen Delivery Method Room Air 03/14/25 09:07 BMI result Body Mass Index 28.0 Tobacco/Smoking Status: Tobacco use Status Tobacco use date assessed 03/14/25 03/14/25 09:19 Patient Tobacco Use Status Former Tobacco user 03/14/25 09:07 Tobacco use type Cigarette 03/14/25 09:07 e-Cigarette/Vaping Use Never Used 03/14/25 09:07 PHQ-9: PHQ-9 Score PHQ-9: Total score 0 03/14/25 09:19 Depression Screening Interpretation: Negative Thrive Assessment: Date of Thrive Assessment Date Thrive assessed 03/14/25 03/14/25 09:19 Currently or been in a relationship where the following occur: No concerns reported Const General: no acute distress HENMT Head: Yes normal to inspection Ears: TM's normal bilaterally Face and sinus: Yes normal facial exam Mouth: Normal oral and palatal mucosa present Eyes General: appearance normal, both eyes and all related structures Neck Neck: Yes no lymphadenopathy and Yes supple Resp Effort & Inspection: normal respiratory effort Auscultation: clear to auscultation bilaterally Cardio Rhythm: regular rhythm Heart sounds: S1 normal heart sound present and S2 normal heart sound present GI Inspection: Yes normal to inspection Palpation (GI): Soft to palpation Percussion: Yes normal to percussion Auscultation: normal bowel sounds Speculum Exam - Vagina: normal appearance of the vagina Speculum Exam - Cervix: normal appearance of the cervix Bimanual exam- vagina & uterus: normal bimanual exam Coding Level of Care Code Est Pt Prev Care 40-64y(11248) Diagnoses HTN (hypertension) I10 CAD (coronary artery disease) I25.10 Abnormal colonoscopy R93.3 Annual physical exam Z00.00 Additional Codes AIME-7 Assessment Billing - AIME-7 Assessment Tool: AIME-7 Assessment 67877 ([id number]) PHQ-9 - 62754 - PHQ-9 Billing: Yes ([id number]) Assessment & Plan Assessment & Plan (1) HTN (hypertension): Code(s): I10 - Essential (primary) hypertension Category: Medical Plan: cont meds (2) CAD (coronary artery disease): Comment: s/p STEMI 04/2016, S/P RCA bare metal stent, Followed by [facility] in [place] Code(s): I25.10 - Atherosclerotic heart disease of [place] coronary artery without angina pectoris Category: Medical Plan: cont meds include high dose statin, check lipids, follow-up with the Cardiology (3) Abnormal colonoscopy: Comment: 07/2020 2 large>3 cm polyps , recheck 04/27 2 polyps, repeat [address] Kasper Code(s): R93.3 - Abnormal findings on diagnostic imaging of other parts of digestive tract Category: Medical Plan: Patient is overdue because of difficulty getting a ride, She will call GI to schedule colonoscopy (4) Annual physical exam: Code(s): Z00.00 - Encounter for general adult medical examination without abnormal findings Category: Medical Plan: Well-balanced diet regular physical activity discussed with the patient she is up-to-date with the mammogram, Pap smear was done today and patient will call GI to schedule colonoscopy. She will return for fasting blood work if LDL is more than 70 Zetia will be added to atorvastatin Orders: Orders Comprehensive [place]. Panel Fast Today E55.9 - Vitamin D deficiency, unspecified, E78.5 - Hyperlipidemia, unspecified, I10 - Essential (primary) hypertension, I21.3 - ST elevation (STEMI) myocardial infarction of unspecified site, I25.10 - Atherosclerotic heart disease of [place] coronary artery without angina pectoris Lipid Panel Today E55.9 - Vitamin D deficiency, unspecified, E78.5 - Hyperlipidemia, unspecified, I10 - Essential (primary) hypertension, I21.3 - ST elevation (STEMI) myocardial infarction of unspecified site, I25.10 - Atherosclerotic heart disease of [place] coronary artery without angina pectoris TSH reflex Free T4 Today E55.9 - Vitamin D deficiency, unspecified, E78.5 - Hyperlipidemia, unspecified, I10 - Essential (primary) hypertension, I21.3 - ST elevation (STEMI) myocardial infarction of unspecified site, I25.10 - Atherosclerotic heart disease of [place] coronary artery without angina pectoris UA w Microscopic Today E55.9 - Vitamin D deficiency, unspecified, E78.5 - Hyperlipidemia, unspecified, I10 - Essential (primary) hypertension, I21.3 - ST elevation (STEMI) myocardial infarction of unspecified site, I25.10 - Atherosclerotic heart disease of [place] coronary artery without angina pectoris Comprehensive Met. Panel 1 Year E55.9 - Vitamin D deficiency, unspecified, E78.5 - Hyperlipidemia, unspecified, I10 - Essential (primary) hypertension, R73.9 - Hyperglycemia, unspecified, R93.3 - Abnormal findings on diagnostic imaging of other parts of digestive tract Lipid Panel 1 Year E55.9 - Vitamin D deficiency, unspecified, E78.5 - Hyperlipidemia, unspecified, I10 - Essential (primary) hypertension, R73.9 - Hyperglycemia, unspecified, R93.3 - Abnormal findings on diagnostic imaging of other parts of digestive tract UA w Microscopic 1 Year E55.9 - Vitamin D deficiency, unspecified, E78.5 - Hyperlipidemia, unspecified, I10 - Essential (primary) hypertension, R73.9 - Hyperglycemia, unspecified, R93.3 - Abnormal findings on diagnostic imaging of other parts of digestive tract Complete Blood Count Auto Diff Today E55.9 - Vitamin D deficiency, unspecified, E78.5 - Hyperlipidemia, unspecified, I10 - Essential (primary) hypertension, I21.3 - ST elevation (STEMI) myocardial infarction of unspecified site, I25.10 - Atherosclerotic heart disease of [place] coronary artery without angina pectoris Vitamin D 25-OH Total Today E55.9 - Vitamin D deficiency, unspecified, E78.5 - Hyperlipidemia, unspecified, I10 - Essential (primary) hypertension, I21.3 - ST elevation (STEMI) myocardial infarction of unspecified site, I25.10 - Atherosclerotic heart disease of [place] coronary artery without angina pectoris Complete Blood Count Auto Diff 1 Year E55.9 - Vitamin D deficiency, unspecified, E78.5 - Hyperlipidemia, unspecified, I10 - Essential (primary) hypertension, R73.9 - Hyperglycemia, unspecified, R93.3 - Abnormal findings on diagnostic imaging of other parts of digestive tract Vitamin D 25-OH Total 1 Year E55.9 - Vitamin D deficiency, unspecified, E78.5 - Hyperlipidemia, unspecified, I10 - Essential (primary) hypertension, R73.9 - Hyperglycemia, unspecified, R93.3 - Abnormal findings on diagnostic imaging of other parts of digestive tract Pap Smear Today Z00.00 - Encounter for general adult medical examination without abnormal findings
== END 2025-03-14 09:56 | disposition home or self-care (01) ==
LOC: HO.HMCC 09:01
PROVIDERS: PCP Internal Medicine; Visit Provider Internal Medicine
DX: Z00.00 Encounter for general adult medical examination without abnormal findings (principal); I10 Essential (primary) hypertension; I25.10 Atherosclerotic heart disease of native coronary artery without angina pectoris; R93.3 Abnormal findings on diagnostic imaging of other parts of digestive tract

== ENCOUNTER 2025-03-15 06:17 | Outpatient (REF) | payer MEDICARE, SELFPAY ==
[2025-03-15 10:03] LABS: MANUAL DIFF FLAG NO
[2025-03-15 10:16] LABS: Appearance Urine Turbid; Glucose Urine UA Negative (Negative); PH 6.0 (5.0-9.0); Specific Gravity - Urine >= 1.030 (1.005-1.025)
[2025-03-15 10:18] LABS: Hematocrit 40.1 % (37.0-47.0); Hemoglobin 13.2 g/dl (12.0-16.0); Imm Gran Abs Auto 0.01 X10*3/uL (0.00-0.03); Imm Gran Pct Auto 0.2 % (0.0-0.4); Lymphocytes Absolute Auto 2.4 X10*3/uL (1.2-4.9); Mean Corpuscular HGB Conc 32.9 g/dl (31.0-35.0); Mean Corpuscular Hemoglobin 28.6 pg (27.0-33.0); Mean Corpuscular Volume 86.8 fL (80.0-98.0); NRBC Abs Auto 0.000 X10*3/uL (0.0-0.012); NRBC Pct Auto 0.0 /100WBC (0.0-0.2); Platelet Count 165 X10*3/uL (160-400); Red Blood Count 4.62 X10*6/uL (4.20-5.50); White Blood Count 6.5 X10*3/uL (4.8-10.8)
[2025-03-15 10:35] LABS: Alanine Aminotransferase 30 U/L (0-31); Albumin Level 4.4 g/dL (3.5-5.0); Alkaline Phosphatase 64 U/L (39-117); Anion Gap 10 (12-20); Aspartate Amino Transferase 29 U/L (5-31); Blood Urea Nitrogen 12 mg/dL (9-16); Calcium 9.3 mg/dL (8.4-10.2); Carbon Dioxide 26 mmol/L (22-29); Chloride 111 mmol/L (96-108); Cholesterol 158 mg/dL (<200); Estimated Glomerular Filt Rate > 60; HDL Cholesterol 61 mg/dL (>40); Potassium 3.7 mmol/L (3.3-5.1); Sodium 143 mmol/L (135-145); Total Protein 6.8 g/dL (6.5-8.0); Triglycerides 121 mg/dL (<150)
== END 2025-03-15 06:18 | disposition home or self-care (01) ==
LOC: HO.HMGCLDS 06:17
PROVIDERS: PCP Internal Medicine; Visit Provider Internal Medicine
DX: I10 Essential (primary) hypertension (principal); I25.10 Atherosclerotic heart disease of native coronary artery without angina pectoris; I21.3 ST elevation (STEMI) myocardial infarction of unspecified site; E78.5 Hyperlipidemia, unspecified; E55.9 Vitamin D deficiency, unspecified
CPT/HCPCS: 36415; 80053; 80061; 81001; 82306; 84443; 85025